=== PATIENT | male | born 1935 | race Caucasian/White ===

== ENCOUNTER → 2017-04-13 | Outpatient (CLI) | payer MEDICARE ==
[2017-04-13 08:34] LABS: Blood Urea Nitrogen 22 mg/dL (9-20); Non-African American GFR(MDRD) >60 (>60 ml/min/1.73 sqM)
--- NOTE | 2017-04-13 10:36 | CT ---
EXAMINATION TYPE: CT chest w con DATE OF EXAM: 04/13/2017 COMPARISON: 04/11/2016. HISTORY: Lung nodule follow up R 91.1, I 71.2. CT DLP: 686 mGycm Automated exposure control for dose reduction was used. CONTRAST: CT scan of the chest is performed with IV Contrast, patient injected with 100 mL of Omnipaque 300. FINDINGS: There is no pleural or pericardial effusion. There is an unchanged 5 mm nodule along the major fissur e on the right. There is an opacity at the left lung base which is felt to be due to atelectasis. The re are no findings to suggest a pneumonia. The central airways are patent. 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 Calcifications are noted surrounding the aor tic valve. There are a few coronary arterial calcifications also noted. There is a 9 mm precarinal ly mph node. There is a small amount fluid noted in the superior pericardial recess. The liver is diffusely hypodense which is felt to be due to hepatic steatosis. Multiple gallstones ar e noted within the gallbladder. The remainder of the upper abdomen is unremarkable as visualized. Mild degenerative changes are noted in the thoracic spine. IMPRESSION: 1. No significant change in appearance of the lungs. A nodule along the major fissure on the right is stable. No nodules are identified. 2. Suspected hepatic steatosis. Correlation with liver function tests is recommended. 3. Other findings are unchanged.
== END | disposition home or self-care (01) ==
LOC: RADCTMAIN 08:02
PROVIDERS: ATTEND Internal Medicine
DX: R91.1 Solitary pulmonary nodule (principal); I71.2 Thoracic aortic aneurysm, without rupture
CPT/HCPCS: 82565; 84520; 71260; 36415; Q9967

== ENCOUNTER 2018-03-02 15:49 | Inpatient (IN) | payer MEDICARE ==
--- NOTE | 2018-03-02 16:22 | ED ---
GI Bleed HPI - General Chief complaint: GI Bleed Stated complaint: rectal bleed Time Seen by Provider: 03/02/18 15:57 Source: patient Mode of arrival: ambulatory Limitations: no limitations - History of Present Illness Initial comments: This patient is an 82-year-old man who presents to be evaluated for rectal bleeding. Patient states that the symptoms started 2-3 hours ago. Patient states he went to have a bowel movement and there was some dark blood passed with the stool. He states that about an hour later he had the urge to have another bowel movement and passed mostly some dark blood. The patient denies any associated abdominal or chest pain. He is not having any perianal pain. Patient denies any symptoms associated with anemia, including no chest pain, dyspnea, diaphoresis, lightheadedness, palpitations or syncope. No orthostatic symptoms. MD complaint: gross hematochezia Onset/Timin -: hour(s) Radiation: none Quality: painless Consistency: constant Improves with: none Worsens with: none Context: blood thinners Associated Symptoms: denies other symptoms Treatments Prior to Arrival: none - Related Data Home Medications Medication Instructions Recorded Confirmed Losartan [Cozaar] 50 mg PO DAILY 06/18/16 03/02/18 Ibuprofen [Motrin Ib] 200 mg PO HS 03/02/18 03/02/18 Magnesium(Unknown) 1 tab PO DAILY 03/02/18 03/02/18 Metoprolol Tartrate [Lopressor] 25 mg PO DAILY 03/02/18 03/02/18 Warfarin Sodium [Coumadin] 3 mg PO RODRIGUEZ 03/02/18 03/02/18 Warfarin Sodium [Coumadin] 6 mg PO SUMOTUWETHFRSA 03/02/18 03/02/18 Allergies Allergy/AdvReac Type Severity Reaction Status Date / Time No Known Allergies Allergy Verified 03/02/18 17:14 Review of Systems ROS Statement: Those systems with pertinent positive or pertinent negative responses have been documented in the HPI. ROS Other: All systems not noted in ROS Statement are negative. Constitutional: Denies: fever, chills Respiratory: Denies: cough, dyspnea Cardiovascular: Denies: chest pain, palpitations, orthopnea, syncope Gastrointestinal: Reports: hematochezia. Denies: abdominal pain, nausea, vomiting, diarrhea, hematemesis, melena Genitourinary: Denies: dysuria, hematuria Musculoskeletal: Denies: back pain Skin: Denies: rash Neurological: Denies: headache, weakness, numbness Past Medical History Past Medical History: Atrial Fibrillation, Hyperlipidemia, Hypertension History of Any Multi-Drug Resistant Organisms: None Reported Past Surgical History: Back Surgery Past Anesthesia/Blood Transfusion Reactions: No Reported Reaction Past Psychological History: No Psychological Hx Reported Smoking Status: Never smoker Past Alcohol Use History: Occasional Past Drug Use History: None Reported General Exam Limitations: no limitations General appearance: alert, in no apparent distress Eye exam: Present: normal appearance. Absent: scleral icterus, conjunctival injection ENT exam: Present: normal oropharynx Respiratory exam: Present: normal lung sounds bilaterally. Absent: respiratory distress, wheezes, rales, rhonchi, stridor Cardiovascular Exam: Present: normal rhythm, bradycardia (Rate approximately 52 at my exam), normal heart sounds. Absent: systolic murmur, diastolic murmur, rubs, gallop GI/Abdominal exam: Present: soft, normal bowel sounds. Absent: distended, tenderness, guarding, rebound, rigid, organomegaly, mass, pulsatile mass, hernia Extremities exam: Present: normal inspection, normal capillary refill. Absent: pedal edema, calf tenderness Back exam: Present: normal inspection. Absent: CVA tenderness (R), CVA tenderness (L) Neurological exam: Present: alert Skin exam: Present: warm, dry, intact, normal color. Absent: rash Course Vital Signs 03/02/18 03/02/18 03/02/18 15:52 16:57 17:50 Temperature 96.9 F L Pulse Rate 55 L 48 L 50 L Respiratory 18 18 18 Rate Blood Pressure 182/86 114/82 139/86 O2 Sat by Pulse 95 99 Oximetry Medical Decision Making - Lab Data Result diagrams: 03/02/18 16:12 03/02/18 16:12 Lab Results 03/02/18 03/02/18 03/02/18 Range/Units 16:12 16:12 16:12 WBC 4.8 (3.8-10.6) k/uL RBC 4.81 (4.30-5.90) m/uL Hgb 14.4 (13.0-17.5) gm/dL Hct 42.9 (39.0-53.0) % MCV 89.1 (80.0-100.0) fL MCH 30.0 (25.0-35.0) pg MCHC 33.6 (31.0-37.0) g/dL RDW 13.1 (11.5-15.5) % Plt Count 249 (150-450) k/uL Neutrophils % 58 % Lymphocytes % 26 % Monocytes % 7 % Eosinophils % 6 % Basophils % 1 % Neutrophils # 2.7 (1.3-7.7) k/uL Lymphocytes # 1.2 (1.0-4.8) k/uL Monocytes # 0.3 (0-1.0) k/uL Eosinophils # 0.3 (0-0.7) k/uL Basophils # 0.0 (0-0.2) k/uL PT (9.0-12.0) sec INR (<1.2) APTT (22.0-30.0) sec Sodium 141 (137-145) mmol/L Potassium 4.0 (3.5-5.1) mmol/L Chloride 107 (98-107) mmol/L Carbon Dioxide 20 L (22-30) mmol/L Anion Gap 14 mmol/L BUN 21 H (9-20) mg/dL Creatinine 0.88 (0.66-1.25) mg/dL Est GFR (CKD-EPI)AfAm >90 (>60 ml/min/1.73 sqM) Est GFR (CKD-EPI)NonAf 79 (>60 ml/min/1.73 sqM) Glucose 94 (74-99) mg/dL Plasma Lactic Acid Cassius (0.7-2.0) mmol/L Calcium 9.5 (8.4-10.2) mg/dL Total Bilirubin 0.4 (0.2-1.3) mg/dL AST 27 (17-59) U/L ALT 36 (21-72) U/L Alkaline Phosphatase 71 (38-126) U/L Total Creatine Kinase 362 H (55-170) U/L CK-MB (CK-2) 6.9 H* (0.0-2.4) ng/mL CK-MB (CK-2) Rel Index 1.9 Troponin I <0.012 (0.000-0.034) ng/mL Total Protein 6.3 (6.3-8.2) g/dL Albumin 4.2 (3.5-5.0) g/dL Blood Type Blood Type Recheck Antibody Screen Spec Expiration Date 03/02/18 03/02/18 03/02/18 Range/Units 16:12 16:12 16:12 WBC (3.8-10.6) k/uL RBC (4.30-5.90) m/uL Hgb (13.0-17.5) gm/dL Hct (39.0-53.0) % MCV (80.0-100.0) fL MCH (25.0-35.0) pg MCHC (31.0-37.0) g/dL RDW (11.5-15.5) % Plt Count (150-450) k/uL Neutrophils % % Lymphocytes % % Monocytes % % Eosinophils % % Basophils % % Neutrophils # (1.3-7.7) k/uL Lymphocytes # (1.0-4.8) k/uL Monocytes # (0-1.0) k/uL Eosinophils # (0-0.7) k/uL Basophils # (0-0.2) k/uL PT 28.4 H (9.0-12.0) sec INR 3.2 H (<1.2) APTT 38.5 H (22.0-30.0) sec Sodium (137-145) mmol/L Potassium (3.5-5.1) mmol/L Chloride (98-107) mmol/L Carbon Dioxide (22-30) mmol/L Anion Gap mmol/L BUN (9-20) mg/dL Creatinine (0.66-1.25) mg/dL Est GFR (CKD-EPI)AfAm (>60 ml/min/1.73 sqM) Est GFR (CKD-EPI)NonAf (>60 ml/min/1.73 sqM) Glucose (74-99) mg/dL Plasma Lactic Acid Cassius 1.1 (0.7-2.0) mmol/L Calcium (8.4-10.2) mg/dL Total Bilirubin (0.2-1.3) mg/dL AST (17-59) U/L ALT (21-72) U/L Alkaline Phosphatase (38-126) U/L Total Creatine Kinase (55-170) U/L CK-MB (CK-2) (0.0-2.4) ng/mL CK-MB (CK-2) Rel Index Troponin I (0.000-0.034) ng/mL Total Protein (6.3-8.2) g/dL Albumin (3.5-5.0) g/dL Blood Type O Positive Blood Type Recheck No Antibody Screen NEGATIVE Spec Expiration Date 03/05/2018 - 2311 Disposition Clinical Impression: Lower gastrointestinal hemorrhage Disposition: ADMITTED IP TO THIS [facility] Condition: Good Is patient prescribed a controlled substance at d/c from ED?: No Referrals: Carlin Scott MD [Primary Care Provider] - 1-2 days
[2018-03-02 16:32] LABS: Basophils % (A) 1 %; Eosinophils # (A) 0.3 k/uL (0-0.7); Eosinophils % (A) 6 %; HCT 42.9 % (39.0-53.0); HGB 14.4 gm/dL (13.0-17.5); Lymphocytes # (A) 1.2 k/uL (1.0-4.8); Lymphocytes % (A) 26 %; MCHC 33.6 g/dL (31.0-37.0); MCV 89.1 fL (80.0-100.0); Mean Platelet Volume 6.8; Monocytes # (A) 0.3 k/uL (0-1.0); Monocytes % (A) 7 %; Neutrophils # (A) 2.7 k/uL (1.3-7.7); Neutrophils % (A) 58 %; Platelet Count 249 k/uL (150-450); RBC 4.81 m/uL (4.30-5.90); RDW 13.1 % (11.5-15.5); WBC 4.8 k/uL (3.8-10.6)
[2018-03-02 16:42] LABS: ALT 36 U/L (21-72); AST 27 U/L (17-59); Albumin 4.2 g/dL (3.5-5.0); Alkaline Phosphatase 71 U/L (38-126); Anion Gap 14 mmol/L; Blood Urea Nitrogen 21 mg/dL (9-20); Calcium 9.5 mg/dL (8.4-10.2); Carbon Dioxide 20 mmol/L (22-30); Chloride 107 mmol/L (98-107); Glucose 94 mg/dL (74-99); INR 3.2 (<1.2); Partial Thromboplastin Time 38.5 sec (22.0-30.0); Prothrombin Time 28.4 sec (9.0-12.0); Sodium 141 mmol/L (137-145); Total Bilirubin 0.4 mg/dL (0.2-1.3); Total Protein 6.3 g/dL (6.3-8.2)
[2018-03-02 16:59] LABS: Creatine Kinase 362 U/L (55-170)
[2018-03-02 17:12] LABS: Troponin I <0.012 ng/mL (0.000-0.034)
[2018-03-02 17:14] LABS: Creatine Kinase MB 6.9 ng/mL (0.0-2.4)
[2018-03-02] MEDS ORDERED: NALOXONE 0.4 MG/ML 1 ML VIAL IV PRN (18:08)
[2018-03-02] MEDS ORDERED: ONDANSETRON 4 MG/2 ML VIAL IVP PRN (18:08)
[2018-03-02] MEDS ORDERED: PHYTONADIONE ORAL 5 MG/5 ML ORAL.SYRG PO STA (18:14)
[2018-03-02] MEDS ORDERED: PANTOPRAZOLE 40 MG/10 ML VIAL IVP STA (18:15)
[2018-03-02] MEDS: SODIUM CHLORIDE 0.9% 1,000 ML IV SCH (18:34)
[2018-03-02 20:31] LABS: HCT 38.1 % (39.0-53.0); HGB 12.9 gm/dL (13.0-17.5); MCH 30.4 pg (25.0-35.0); MCHC 33.7 g/dL (31.0-37.0); MCV 90.1 fL (80.0-100.0); Mean Platelet Volume 6.8; Platelet Count 261 k/uL (150-450); RBC 4.23 m/uL (4.30-5.90); RDW 13.1 % (11.5-15.5); WBC 6.5 k/uL (3.8-10.6)
[2018-03-02 20:47] LABS: Glucose,Whole Blood 112 mg/dL (75-99)
--- NOTE | 2018-03-02 22:52 | HP ---
HISTORY AND PHYSICAL DATE OF ADMISSION: 03/02/2018. HISTORY OF PRESENT ILLNESS: This is a 82-year-old white male who was brought to the emergency room with rectal bleeding and he is being admitted by me for Dr. Scott as I am covering Dr. Scott this weekend. The patient started having rectal bleeding about 2-3 hours prior to coming to the ER. He had 2 or 3 bowel movements which was watery and dark red stool and the patient denied any abdominal pain, nausea, or vomiting and no systemic symptoms. He also has had no chest pain or shortness of breath. In the ER, his CBC showed a WBC count of 4.8, hemoglobin 14.4, platelet count 249,000. Sodium 141, potassium 4.0, and BUN 21, creatinine 0.88. His cardiac enzymes are within normal limits. His protime and INR was prolonged and it was the protime was 28.4, an INR of 3.2. The patient is known to have paroxysmal atrial fibrillation and he has been on Coumadin. The patient was admitted to the hospital for further evaluation and treatment. PAST MEDICAL HISTORY: Reveals that the patient is known to have hypertensive cardiovascular disease, paroxysmal atrial fibrillation. CURRENT MEDICATIONS: Include Cozaar 50 mg p.o. daily, Motrin 200 mg daily q.h.s. and Coumadin 3 mg on Sundays and 6 mg the rest of the days. He has had no major operations. FAMILY HISTORY: Noncontributory. REVIEW OF SYSTEMS: Patient denies any headache. Appetite has been good. Bowels have been regular until the present complaints started. He has no chest pain. He has no shortness of breath. He has no nausea, vomiting, and he has no polyuria or dysuria. He has no neurological symptoms. PHYSICAL EXAMINATION: Reveals a 82-year-old white male, well nourished and well developed. He is in no acute distress. He is alert and oriented. There is no jaundice. There is no generalized lymphadenopathy. No petechia or bruises. Temperature 96.9, pulse 58 per minute, regular, and blood pressure 139/86, pulse ox 99%. NECK: Supple. There is no jugular venous distention. There is no goiter and no carotid bruit. Heart is in sinus rhythm. LUNGS: Clear to auscultation and percussion. ABDOMEN: Soft and nontender. There is no mass palpable. Examination of the lower extremities reveal no pitting edema. Neurologic examination does not reveal localizing signs. IMPRESSION: 1. Gastrointestinal bleeding, acute. 2. Hypertensive cardiovascular disease. 3. History of paroxysmal atrial fibrillation. 4. Prolonged PT and INR due to Coumadin therapy. PLAN: Patient will be admitted to the hospital. Heart will be monitored with telemetry. We will also monitor his hemoglobin and hematocrit. Will get Gastroenterology consultation. Dr. Winlsow has already been consulted. Prognosis is guarded. The diagnosis, prognosis and therapeutic plans were discussed in detail with the patient and also with his . MMODL / IJN: [id number] /
[2018-03-03 00:15] LABS: Basophils % (A) 0 %; Eosinophils # (A) 0.2 k/uL (0-0.7); Eosinophils % (A) 2 %; HCT 39.4 % (39.0-53.0); HGB 12.7 gm/dL (13.0-17.5); Lymphocytes # (A) 1.2 k/uL (1.0-4.8); Lymphocytes % (A) 16 %; MCH 29.2 pg (25.0-35.0); MCHC 32.2 g/dL (31.0-37.0); MCV 90.8 fL (80.0-100.0); Monocytes # (A) 0.3 k/uL (0-1.0); Monocytes % (A) 5 %; Neutrophils # (A) 5.4 k/uL (1.3-7.7); Neutrophils % (A) 75 %; Platelet Count 254 k/uL (150-450); RBC 4.34 m/uL (4.30-5.90); RDW 13.4 % (11.5-15.5); WBC 7.2 k/uL (3.8-10.6)
[2018-03-03 04:49] LABS: Basophils % (A) 0 %; Eosinophils # (A) 0.1 k/uL (0-0.7); Eosinophils % (A) 3 %; HCT 34.9 % (39.0-53.0); HGB 11.4 gm/dL (13.0-17.5); Lymphocytes # (A) 0.9 k/uL (1.0-4.8); Lymphocytes % (A) 19 %; MCH 29.5 pg (25.0-35.0); MCHC 32.7 g/dL (31.0-37.0); MCV 90.1 fL (80.0-100.0); Mean Platelet Volume 6.6; Monocytes # (A) 0.3 k/uL (0-1.0); Monocytes % (A) 6 %; Neutrophils # (A) 3.3 k/uL (1.3-7.7); Neutrophils % (A) 71 %; Platelet Count 205 k/uL (150-450); RBC 3.87 m/uL (4.30-5.90); RDW 13.2 % (11.5-15.5); WBC 4.7 k/uL (3.8-10.6)
[2018-03-03 05:01] LABS: Calcium 8.8 mg/dL (8.4-10.2); Phosphorus 3.4 mg/dL (2.5-4.5); Potassium 4.1 mmol/L (3.5-5.1)
[2018-03-03 05:03] LABS: INR 2.7 (<1.2); Prothrombin Time 24.3 sec (9.0-12.0)
[2018-03-03] MEDS: SODIUM CHLORIDE 0.9% 1,000 ML IV SCH ×3 (08:19→18:58)
[2018-03-03] MEDS: LOSARTAN 50 MG TAB PO SCH (08:19)
[2018-03-03] MEDS: METOPROLOL TARTRATE 25 MG TAB PO SCH (08:19)
[2018-03-03] MEDS: PANTOPRAZOLE 40 MG/10 ML VIAL IV SCH (08:20)
[2018-03-03 12:26] LABS: HGB 10.9 gm/dL (13.0-17.5); MCH 29.2 pg (25.0-35.0); MCV 91.2 fL (80.0-100.0); Platelet Count 202 k/uL (150-450); RBC 3.73 m/uL (4.30-5.90); RDW 13.3 % (11.5-15.5); WBC 4.5 k/uL (3.8-10.6)
[2018-03-03 12:35] LABS: INR 2.3 (<1.2); Partial Thromboplastin Time 32.9 sec (22.0-30.0); Prothrombin Time 20.7 sec (9.0-12.0)
--- NOTE | 2018-03-03 12:45 | P.CNPUL ---
History of Present Illness Consult date: 03/03/18 Chief complaint: GI bleeding History of present illness: A pleasant 82-year-old male patient who takes anticoagulation with warfarin regarding chronic paroxysmal atrial fibrillation, coming to the hospital because of painless bright red blood per rectum. The patient had 2 episodes at home and 2 smaller episodes here in the hospital. No chest pain. No episodes of hematemesis or coffee-ground emesis. No melanotic stools. The stool was maroon colored. Occasional clots were seen. The patient had some difficulties in controlling the INR on outpatient basis and adjust was were being made and he was given a lower dose of Coumadin and on admission his INR was down to 3.2. He was given 5 mg of vitamin K and subsequent INR today is at 2.7. He has not bled in the intensive care unit. No nausea. No vomiting. No altered mentation. No chest pain. He has a normal sinus rhythm for now with a first- degree AV block. He has been taking nonsteroidal anti-inflammatory medications for arthritic pain and he was taken quite a bit of Motrin. No liver disease cannot alcoholism. No peptic ulcer disease. No other complaints otherwise. His last colonoscopy was done more than 8 years ago. Review of Systems Constitutional: Denies chills, Denies fever Eyes: denies blurred vision, denies bulging eye, denies decreased vision Ears: deny: decreased hearing, ear discharge, earache, tinnitus Ears, nose, mouth and throat: Denies headache, Denies sore throat Cardiovascular: Denies chest pain, Denies shortness of breath Respiratory: Reports as per HPI Gastrointestinal: Reports BRBPR Genitourinary: Reports as per HPI Musculoskeletal: Denies myalgias Musculoskeletal: absent: ankle pain, ankle stiffness, ankle swelling Integumentary: Denies pruritus, Denies rash Neurological: Reports as per HPI Psychiatric: Reports as per HPI Endocrine: Reports as per HPI Hematologic/Lymphatic: Reports as per HPI Allergic/Immunologic: Reports as per HPI Past Medical History Past Medical History: Atrial Fibrillation, Hyperlipidemia, Hypertension, Osteoarthritis (OA) History of Any Multi-Drug Resistant Organisms: None Reported Past Surgical History: Back Surgery, Tonsillectomy Past Anesthesia/Blood Transfusion Reactions: No Reported Reaction Past Psychological History: No Psychological Hx Reported Smoking Status: Never smoker Past Alcohol Use History: Occasional Past Drug Use History: None Reported - Past Family History Father Family Medical History: Cancer Additional Family Medical History / Comment(s): Pancreatic CA Medications and Allergies Home Medications Medication Instructions Recorded Confirmed Type Losartan [Cozaar] 50 mg PO DAILY 06/18/16 03/02/18 History Ibuprofen [Motrin Ib] 200 mg PO HS 03/02/18 03/02/18 History Magnesium(Unknown) 1 tab PO DAILY 03/02/18 03/02/18 History Metoprolol Tartrate [Lopressor] 25 mg PO DAILY 03/02/18 03/02/18 History Warfarin Sodium [Coumadin] 3 mg PO RODRIGUEZ 03/02/18 03/02/18 History Warfarin Sodium [Coumadin] 6 mg PO SUMOTUWETHFRSA 03/02/18 03/02/18 History Allergies Allergy/AdvReac Type Severity Reaction Status Date / Time No Known Allergies Allergy Verified 03/02/18 17:14 Physical Exam Vitals: Vital Signs Temp Pulse Pulse Resp BP BP BP 03/03/18 12:00 98.3 F 49 L 15 117/68 03/03/18 11:00 47 L 15 137/80 03/03/18 10:00 43 L 18 129/76 03/03/18 09:00 68 18 144/82 03/03/18 08:30 63 18 141/85 03/03/18 08:00 98.1 F 82 16 141/73 03/03/18 07:00 52 L 20 163/79 03/03/18 06:30 54 L 33 H 145/76 03/03/18 06:00 60 19 140/71 03/03/18 05:30 56 L 21 136/88 03/03/18 05:00 55 L 26 H 151/65 03/03/18 04:30 53 L 16 141/72 03/03/18 04:00 98.2 F 53 L 15 136/76 03/03/18 03:30 56 L 20 108/56 03/03/18 03:00 55 L 12 129/55 03/03/18 02:30 52 L 16 112/69 03/03/18 02:00 56 L 48 H 93/48 03/03/18 01:30 55 L 21 106/69 03/03/18 01:00 58 L 21 127/80 03/03/18 00:30 57 L 30 H 135/75 03/03/18 00:06 65 20 158/79 03/03/18 00:00 97.9 F 75 20 158/79 03/02/18 23:30 54 L 15 158/79 03/02/18 23:00 64 23 110/60 03/02/18 22:30 52 L 16 172/68 03/02/18 22:00 60 11 L 137/82 03/02/18 21:30 65 20 112/69 03/02/18 21:00 72 17 112/69 03/02/18 19:45 98.1 F 79 18 107/68 03/02/18 19:06 59 L 145/87 03/02/18 18:51 96 F L 18 03/02/18 18:35 97.8 F 12 112/69 03/02/18 17:50 50 L 18 139/86 03/02/18 16:57 48 L 18 114/82 03/02/18 15:52 96.9 F L 55 L 18 182/86 Pulse Ox 03/03/18 12:00 95 03/03/18 11:00 97 03/03/18 10:00 96 03/03/18 09:00 96 03/03/18 08:30 95 03/03/18 08:00 95 03/03/18 07:00 03/03/18 06:30 03/03/18 06:00 91 L 03/03/18 05:30 92 L 03/03/18 05:00 95 03/03/18 04:30 93 L 03/03/18 04:00 93 L 03/03/18 03:30 93 L 03/03/18 03:00 93 L 03/03/18 02:30 94 L 03/03/18 02:00 94 L 03/03/18 01:30 97 03/03/18 01:00 97 03/03/18 00:30 93 L 03/03/18 00:06 97 03/03/18 00:00 94 L 03/02/18 23:30 93 L 03/02/18 23:00 96 03/02/18 22:30 95 03/02/18 22:00 92 L 03/02/18 21:30 93 L 03/02/18 21:00 96 03/02/18 19:45 96 03/02/18 19:06 05/12/18 18:51 97 03/02/18 18:35 93 L 03/02/18 17:50 99 03/02/18 16:57 03/02/18 15:52 95 Intake and Output 03/02/18 03/03/18 03/03/18 22:59 06:59 14:59 Intake Total 125 1000 950 Output Total 275 Balance 125 725 950 Intake: IV 125 1000 750 Sodium Chloride 0.9% 1, 125 1000 750 000 ml @ 125 mls/hr IV . Q8H [facility] Rx#:[id number] Oral 200 Output: Urine 275 Other: Voiding Method Urinal Urinal Toilet Urinal # Voids 0 0 1 # Bowel Movements 5 1 Weight 93.5 kg 93.5 kg Head exam was generally normal. There was no scleral icterus or corneal arcus. Mucous membranes were moist. Neck was supple and without jugular venous distension, thyromegaly, or carotid bruits. Carotids were easily palpable bilaterally. There was no adenopathy. Lungs were clear to auscultation and percussion, and with normal diaphragmatic excursion. No wheezes or rales were noted. Cardiac exam revealed the PMI to be normally situated and sized. The rhythm was regular and no extrasystoles were noted during several minutes of auscultation. The first and second heart sounds were normal and physiologic splitting of the second heart sound was noted. There were no murmurs, rubs, clicks, or gallops. Abdominal exam revealed normal bowel sounds. The abdomen was soft, non-tender, and without masses, organomegaly, or appreciable enlargement of the abdominal aorta. Examination of the extremities revealed easily palpable radial, femoral and pedal pulses. There was no cyanosis, clubbing or edema. Examination of the skin revealed no evidence of significant rashes, suspicious appearing nevi or other concerning lesions. Neurologically the patient is awake and alert and there is no focal neurological deficit Results - Laboratory Findings CBC and BMP: 03/03/18 04:18 03/03/18 04:18 PT/INR, D-dimer PT 20.7 sec (9.0-12.0) H 03/03/18 11:57 INR 2.3 (<1.2) H 03/03/18 11:57 Abnormal lab findings: Abnormal Labs 03/02/18 03/02/18 03/02/18 16:12 16:12 16:12 RBC Hgb Hct Lymphocytes # PT 28.4 H INR 3.2 H APTT 38.5 H Chloride Carbon Dioxide 20 L BUN 21 H POC Glucose (mg/dL) Total Creatine Kinase 362 H CK-MB (CK-2) 6.9 H* 03/02/18 03/02/18 03/03/18 20:02 20:45 00:01 RBC 4.23 L Hgb 12.9 L 12.7 L Hct 38.1 L Lymphocytes # PT INR APTT Chloride Carbon Dioxide BUN POC Glucose (mg/dL) 112 H Total Creatine Kinase CK-MB (CK-2) 03/03/18 03/03/18 03/03/18 04:18 04:18 04:18 RBC 3.87 L Hgb 11.4 L Hct 34.9 L Lymphocytes # 0.9 L PT 24.3 H INR 2.7 H APTT 35.0 H Chloride 108 H Carbon Dioxide BUN POC Glucose (mg/dL) Total Creatine Kinase CK-MB (CK-2) 03/03/18 11:57 RBC Hgb Hct Lymphocytes # PT 20.7 H INR 2.3 H APTT 32.9 H Chloride Carbon Dioxide BUN POC Glucose (mg/dL) Total Creatine Kinase CK-MB (CK-2) Assessment and Plan Plan: Assessment 1 acute GI bleeding, likely of a lower GI source/diverticular bleed exacerbated by anticoagulation and use of nonsteroidal anti-inflammatory medication. The patient was taken off the warfarin currently his INR is down to 2.3 after being given 5 mg of vitamin K. No further episodes of bleeding. GI is on the case. Hemodynamically stable. Hemoglobin is up from a baseline of 12.9 down to 11.4. 2 paroxysmal atrial fibrillation 3 hypertension 4 hyperlipidemia 5 osteoarthritis and the patient has been taken Motrin on outpatient basis Plan Allow clear liquids. Monitor hemoglobin. Monitor coagulation profile. No need for transfusion at this point in time. Consult GI for possible colonoscopy at a later stage. Continue moved out of the intensive care unit once seen by gastroenterology.
[2018-03-03 19:34] LABS: HCT 34.8 % (39.0-53.0); HGB 11.2 gm/dL (13.0-17.5); MCH 29.7 pg (25.0-35.0); MCHC 32.2 g/dL (31.0-37.0); Mean Platelet Volume 7.2; Platelet Count 223 k/uL (150-450); RBC 3.78 m/uL (4.30-5.90); RDW 13.3 % (11.5-15.5); WBC 3.9 k/uL (3.8-10.6)
--- NOTE | 2018-03-03 22:44 | PN ---
PROGRESS NOTE DATE OF SERVICE: 03/03/2018 This is an 82-year-old white male was brought to the emergency room with 3 episodes of rectal bleeding and a history he had profuse bleeding and 2-3 bloody stools before coming to the ER. In the ER, his CBC showed a hemoglobin 14.4 at the time of arrival and then it came down to 12.9. The patient also is known to have paroxysmal atrial fibrillation and has been on Coumadin. His INR and pro time was slightly prolonged. The patient was admitted to the hospital for further evaluation and treatment. Initially, patient was admitted to telemetry and gastroenterology consultation was requested and Dr. Winslow was consulted. While in the hospital, the patient still continued to have 2 or 3 bloody stools and because of continuous bleeding, the patient was transferred to ICU. Dr. Ruiz was consulted for ICU management. His hemoglobin today is 11.4, which is much lower than yesterday. Dr. Winslow saw the patient in consultation and he is also following the patient. The patient denies any abdominal pain. He has no chest pain or shortness of breath. His vital signs are stable. Heart is in sinus rhythm. Lungs are clear. There is no acute cardio or respiratory problems. Prognosis is guarded. We will continue to monitor his hemoglobin and hematocrit and Dr. Ruiz is following the patient for ICU management. Dr. Winslow also is following the patient for further evaluation. Prognosis is guarded. His primary care physician, Dr. Scott, will assume care of the patient starting tomorrow. MMANALIAL / SONAMN: [id number] /
[2018-03-03 23:47] LABS: HCT 30.9 % (39.0-53.0); HGB 10.1 gm/dL (13.0-17.5); MCH 29.7 pg (25.0-35.0); MCHC 32.5 g/dL (31.0-37.0); MCV 91.3 fL (80.0-100.0); Mean Platelet Volume 7.1; Platelet Count 196 k/uL (150-450); RBC 3.39 m/uL (4.30-5.90); RDW 13.3 % (11.5-15.5); WBC 3.5 k/uL (3.8-10.6)
[2018-03-04] MEDS: SODIUM CHLORIDE 0.9% 1,000 ML IV SCH ×3 (03:45→12:38)
[2018-03-04 06:06] LABS: Basophils % (A) 0 %; Eosinophils # (A) 0.2 k/uL (0-0.7); Eosinophils % (A) 5 %; HCT 32.8 % (39.0-53.0); HGB 10.9 gm/dL (13.0-17.5); Lymphocytes # (A) 1.2 k/uL (1.0-4.8); Lymphocytes % (A) 32 %; MCH 29.6 pg (25.0-35.0); MCHC 33.1 g/dL (31.0-37.0); MCV 89.5 fL (80.0-100.0); Mean Platelet Volume 7.1; Monocytes # (A) 0.3 k/uL (0-1.0); Monocytes % (A) 8 %; Neutrophils # (A) 1.9 k/uL (1.3-7.7); Neutrophils % (A) 51 %; Platelet Count 223 k/uL (150-450); RBC 3.67 m/uL (4.30-5.90); RDW 13.1 % (11.5-15.5); WBC 3.7 k/uL (3.8-10.6)
[2018-03-04 06:36] LABS: Calcium 8.8 mg/dL (8.4-10.2); Magnesium 2.1 mg/dL (1.6-2.3); Phosphorus 3.4 mg/dL (2.5-4.5); Potassium 4.3 mmol/L (3.5-5.1)
[2018-03-04] MEDS: LOSARTAN 50 MG TAB PO SCH (08:18)
[2018-03-04] MEDS: PANTOPRAZOLE 40 MG/10 ML VIAL IV SCH (08:18)
[2018-03-04 08:44] LABS: Prothrombin Time 17.8 sec (9.0-12.0)
--- NOTE | 2018-03-04 10:25 | P.PN ---
Subjective Progress Note Date: 03/04/18 Principal diagnosis: Acute GI bleeding A pleasant 82-year-old male patient who takes anticoagulation with warfarin regarding chronic paroxysmal atrial fibrillation, coming to the hospital because of painless bright red blood per rectum. The patient had 2 episodes at home and 2 smaller episodes here in the hospital. No chest pain. No episodes of hematemesis or coffee-ground emesis. No melanotic stools. The stool was maroon colored. Occasional clots were seen. The patient had some difficulties in controlling the INR on outpatient basis and adjust was were being made and he was given a lower dose of Coumadin and on admission his INR was down to 3.2. He was given 5 mg of vitamin K and subsequent INR today is at 2.7. He has not bled in the intensive care unit. No nausea. No vomiting. No altered mentation. No chest pain. He has a normal sinus rhythm for now with a first- degree AV block. He has been taking nonsteroidal anti-inflammatory medications for arthritic pain and he was taken quite a bit of Motrin. No liver disease cannot alcoholism. No peptic ulcer disease. No other complaints otherwise. His last colonoscopy was done more than 8 years ago. Patient was reevaluated today on 03/04/2018, patient is doing well, Coumadin remains on hold, patient is not experiencing any active GI bleeding. Did not require any blood transfusions since admission, hemoglobin today is 10.9, similar to yesterday 11.2. INR is 2.0, basic metabolic profile is relatively normal renal profile is normal. Patient denies any nausea vomiting melena or hematemesis, denies any shortness of breath, we will likely transfer the patient out of the ICU this morning. Objective - Vital Signs Vital signs: Vital Signs Temp 97.4 F L 03/04/18 08:00 Pulse 54 L 03/04/18 08:00 Resp 15 03/04/18 08:00 BP 154/88 03/04/18 08:00 Pulse Ox 98 03/04/18 08:00 Intake & Output 03/03/18 03/04/18 03/04/18 18:59 06:59 18:59 Intake Total 2545 1475 250 Output Total 900 1500 400 Balance 1645 -25 -150 Weight 92.4 kg Intake: IV 1625 1375 250 Sodium Chloride 0.9% 1, 1625 1375 250 000 ml @ 125 mls/hr IV . Q8H [facility] Rx#:[id number] Oral 920 100 Output: Urine 900 1500 400 Other: Voiding Method Toilet Toilet Toilet Urinal Urinal Urinal # Voids 1 # Bowel Movements 1 1 - Exam Physical Exam: Revealed an 82-year-old white male, pleasant, in no distress. HEENT:[Neck is supple.] [No neck masses.] [No thyromegaly.] [No JVD.] Chest: [Clear throughout, no crackles, no rhonchi, no wheezes.] Cardiac Exam: [Normal S1 and S2, no S3 gallop, no murmur.] Abdomen: [Soft, nontender, no megaly, no rebound, no guarding, normal bowel sounds.] Extremities: [No clubbing, no edema, no cyanosis.] Neurological Exam: [No focal neurologic deficit.] Psychiatric: Normal mood affect and mental status examination. Lymphatics: No lymphadenopathy. Musculoskeletal: Normal range of motion, no deformities. Strength adequate bilaterally. - Labs CBC & Chem 7: 03/04/18 05:54 03/04/18 05:54 Labs: Abnormal Lab Results - Last 24 Hours (Table) 03/03/18 03/03/18 03/03/18 Range/Units 11:57 11:57 18:59 WBC (3.8-10.6) k/uL RBC 3.73 L 3.78 L (4.30-5.90) m/uL Hgb 10.9 L 11.2 L (13.0-17.5) gm/dL Hct 34.0 L 34.8 L (39.0-53.0) % PT 20.7 H (9.0-12.0) sec INR 2.3 H (<1.2) APTT 32.9 H (22.0-30.0) sec Chloride (98-107) mmol/L 03/03/18 03/04/18 03/04/18 Range/Units 23:40 05:54 05:54 WBC 3.5 L 3.7 L (3.8-10.6) k/uL RBC 3.39 L 3.67 L (4.30-5.90) m/uL Hgb 10.1 L 10.9 L (13.0-17.5) gm/dL Hct 30.9 L 32.8 L (39.0-53.0) % PT (9.0-12.0) sec INR (<1.2) APTT (22.0-30.0) sec Chloride 112 H (98-107) mmol/L 03/04/18 Range/Units 08:16 WBC (3.8-10.6) k/uL RBC (4.30-5.90) m/uL Hgb (13.0-17.5) gm/dL Hct (39.0-53.0) % PT 17.8 H (9.0-12.0) sec INR 2.0 H (<1.2) APTT (22.0-30.0) sec Chloride (98-107) mmol/L Assessment and Plan Assessment: 1 acute GI bleeding, likely of a lower GI source/diverticular bleed exacerbated by anticoagulation and use of nonsteroidal anti-inflammatory medication. The patient was taken off the warfarin currently his INR is down to 2.0 after being given 5 mg of vitamin K. No further episodes of bleeding. GI is on the case. Hemodynamically stable. Hemoglobin is up from a baseline of 12.9 down to 10.9. 2 paroxysmal atrial fibrillation, decision regarding Coumadin will be addressed by cardiology. Presently the patient is in sinus rhythm. 3 hypertension 4 hyperlipidemia 5 osteoarthritis and the patient has been taken Motrin on outpatient basis Recommendation: Continue present treatment plan, continue to monitor coagulation profile, patient is yet to be seen by gastroenterology on consultation, will transfer the patient out of the ICU, and will follow. Time with Patient: Less than 30
[2018-03-04 10:57] VITALS: RESP 16
[2018-03-04 13:31] LABS: HCT 31.8 % (39.0-53.0); HGB 10.4 gm/dL (13.0-17.5); MCH 29.9 pg (25.0-35.0); MCHC 32.5 g/dL (31.0-37.0); MCV 91.9 fL (80.0-100.0); Mean Platelet Volume 7.3; Platelet Count 197 k/uL (150-450); RBC 3.46 m/uL (4.30-5.90); RDW 13.4 % (11.5-15.5); WBC 3.7 k/uL (3.8-10.6)
[2018-03-04] MEDS: METOPROLOL TARTRATE 25 MG TAB PO SCH (13:31)
[2018-03-04 18:11] LABS: MCH 29.8 pg (25.0-35.0); MCHC 32.4 g/dL (31.0-37.0); MCV 91.9 fL (80.0-100.0); Platelet Count 220 k/uL (150-450); RBC 3.37 m/uL (4.30-5.90); RDW 13.4 % (11.5-15.5); WBC 4.1 k/uL (3.8-10.6)
--- NOTE | 2018-03-04 23:39 | PN ---
PROGRESS NOTE CHIEF COMPLAINT: Re-evaluation. HISTORY OF PRESENT ILLNESS: Ynxada[age]hucg[age]kn-old gentleman who was admitted to the hospital with GI bleeding. The patient is seen in the ICU. He has had no further bleeding. He is suspected to have a colonic diverticular bleed. The patient was seen by GI in consultation; consult report pending. The patient has been seen by the tire changer aircraft as well. The patient is actually feeling fine. He is denying any symptoms. He has had no bloody bowel movement since yesterday. REVIEW OF SYSTEMS: NEURO: Denies any headaches, dizziness. PSYCH: No anxiety. CARDIAC: No chest pain, angina, palpitation. RESPIRATORY: Denies shortness of breath, cough. GI: No nausea, vomiting, abdominal pain, diarrhea. No bowel movement. : No symptoms of dysuria or hematuria. EXTREMITIES: Denies pain, edema. CONSTITUTIONAL: No fever, chills. PHYSICAL EXAMINATION: Pleasant gentleman in no distress. Vital signs revealed temperature 97.4, pulse 54, respirations 15, blood pressure 154/88. HEENT: Normocephalic. NECK: Supple. No JVD. CHEST: Clear to auscultation. CARDIAC: Normal S1, S2 with no gallops, murmurs. Rhythm is regular. ABDOMEN: Soft. Bowel sounds present. Extremities reveal no edema, no tenderness. Neurologically awake, alert, oriented with well-coordinated movements. LAB ASSESSMENT: CBC which revealed a hemoglobin of 10.9. Patient's INR was 2.0. Patient's electrolytes, BUN and creatinine are normal. ASSESSMENT: 1. Lower gastrointestinal bleeding; suspected diverticular bleed. 2. Anemia secondary to acute blood loss. 3. Paroxysmal atrial fibrillation. 4. Bradycardia. PLAN: The patient can be transferred the ICU and the med/surg floor. He can be started on full liquids. If patient remains stable, the patient will be discharged home tomorrow. The patient's condition was discussed with the patient. I also reviewed with the patient that patient down the road will have a colonic evaluation. The patient does not need to take his Coumadin for the next 2 weeks. Patient's condition discussed with the patient. Prognosis guarded. MMODL / IJN: [id number] /
--- NOTE | 2018-03-05 03:52 | P.CONS ---
History of Present Illness - Reason for Consult Consult date: 03/03/18 GI bleeding - History of Present Illness The patient is an 82-year-old male who was admitted through the emergency room where he presented with acute onset of painless rectal bleeding. The patient had couple episodes of bleeding per rectum a few hours prior to arrival. The patient takes Coumadin for chronic atrial fibrillation. His INR was 3.2 on arrival and his hemoglobin was around 10.9. The patient denied upper GI complaints or any hematemesis or coffee-ground emesis. His last colonoscopy was around 8 years ago. The patient had 2 smaller bloody movements after admission and his hemoglobin remained stable. Review of Systems Constitutional: Denied fever, chills and unintentional weight loss Neurologic: No headaches, double vision or any sensory or motor changes Cardiopulmonary: No chest pains or shortness of breath. Has history of hypertension and hypertensive cardiovascular disease and atrial fibrillation Gastrointestinal: See present illness above Genitourinary: No hematuria, dysuria or frequency Endocrine: No diabetes or thyroid disease Musculoskeletal: History of osteoarthritis Skin: No rashes Hematologic: No anemia or bleeding tendency Psychiatric: No anxiety or depression Past Medical History Past Medical History: Atrial Fibrillation, Hyperlipidemia, Hypertension, Osteoarthritis (OA) History of Any Multi-Drug Resistant Organisms: None Reported Past Surgical History: Back Surgery, Tonsillectomy Past Anesthesia/Blood Transfusion Reactions: No Reported Reaction Past Psychological History: No Psychological Hx Reported Smoking Status: Never smoker Past Alcohol Use History: Occasional Past Drug Use History: None Reported - Past Family History Father Family Medical History: Cancer Additional Family Medical History / Comment(s): Pancreatic CA Medications and Allergies Home Medications Medication Instructions Recorded Confirmed Type Losartan [Cozaar] 50 mg PO DAILY 06/18/16 03/02/18 History Ibuprofen [Motrin Ib] 200 mg PO HS 03/02/18 03/02/18 History Magnesium(Unknown) 1 tab PO DAILY 03/02/18 03/02/18 History Metoprolol Tartrate [Lopressor] 25 mg PO DAILY 03/02/18 03/02/18 History Warfarin Sodium [Coumadin] 3 mg PO RODRIGUEZ 03/02/18 03/02/18 History Warfarin Sodium [Coumadin] 6 mg PO SUMOTUWETHFRSA 03/02/18 03/02/18 History Allergies Allergy/AdvReac Type Severity Reaction Status Date / Time No Known Allergies Allergy Verified 03/02/18 17:14 Physical Exam Vitals: Vital Signs Temp Pulse Pulse Resp BP BP BP 03/03/18 12:00 98.3 F 49 L 15 117/68 03/03/18 11:00 47 L 15 137/80 03/03/18 10:00 43 L 18 129/76 03/03/18 09:00 68 18 144/82 03/03/18 08:30 63 18 141/85 03/03/18 08:00 98.1 F 82 16 141/73 03/03/18 07:00 52 L 20 163/79 03/03/18 06:30 54 L 33 H 145/76 03/03/18 06:00 60 19 140/71 03/03/18 05:30 56 L 21 136/88 03/03/18 05:00 55 L 26 H 151/65 03/03/18 04:30 53 L 16 141/72 03/03/18 04:00 98.2 F 53 L 15 136/76 03/03/18 03:30 56 L 20 108/56 03/03/18 03:00 55 L 12 129/55 03/03/18 02:30 52 L 16 112/69 03/03/18 02:00 56 L 48 H 93/48 03/03/18 01:30 55 L 21 106/69 03/03/18 01:00 58 L 21 127/80 03/03/18 00:30 57 L 30 H 135/75 03/03/18 00:06 65 20 158/79 03/03/18 00:00 97.9 F 75 20 158/79 03/02/18 23:30 54 L 15 158/79 03/02/18 23:00 64 23 110/60 03/02/18 22:30 52 L 16 172/68 03/02/18 22:00 60 11 L 137/82 03/02/18 21:30 65 20 112/69 03/02/18 21:00 72 17 112/69 03/02/18 19:45 98.1 F 79 18 107/68 03/02/18 19:06 59 L 145/87 03/02/18 18:51 96 F L 18 03/02/18 18:35 97.8 F 12 112/69 03/02/18 17:50 50 L 18 139/86 03/02/18 16:57 48 L 18 114/82 03/02/18 15:52 96.9 F L 55 L 18 182/86 Pulse Ox 03/03/18 12:00 95 03/03/18 11:00 97 03/03/18 10:00 96 03/03/18 09:00 96 03/03/18 08:30 95 03/03/18 08:00 95 03/03/18 07:00 03/03/18 06:30 03/03/18 06:00 91 L 03/03/18 05:30 92 L 03/03/18 05:00 95 03/03/18 04:30 93 L 03/03/18 04:00 93 L 03/03/18 03:30 93 L 03/03/18 03:00 93 L 03/03/18 02:30 94 L 03/03/18 02:00 94 L 03/03/18 01:30 97 03/03/18 01:00 97 03/03/18 00:30 93 L 03/03/18 00:06 97 03/03/18 00:00 94 L 03/02/18 23:30 93 L 03/02/18 23:00 96 03/02/18 22:30 95 03/02/18 22:00 92 L 03/02/18 21:30 93 L 03/02/18 21:00 96 03/02/18 19:45 96 03/02/18 19:06 03/02/18 18:51 97 03/02/18 18:35 93 L 03/02/18 17:50 99 03/02/18 16:57 03/02/18 15:52 95 Intake and Output 03/02/18 03/03/18 03/03/18 22:59 06:59 14:59 Intake Total 125 1000 950 Output Total 275 Balance 125 725 950 Intake: IV 125 1000 750 Sodium Chloride 0.9% 1, 125 1000 750 000 ml @ 125 mls/hr IV . Q8H [facility] Rx#:[id number] Oral 200 Output: Urine 275 Other: Voiding Method Urinal Urinal Toilet Urinal # Voids 0 0 1 # Bowel Movements 5 1 Weight 93.5 kg 93.5 kg General: Appears stated age, very pleasant, in no acute distress Head and neck: Normocephalic and atraumatic, conjunctivae pink and sclerae not icteric, mucous membranes moist and pink. No masses in the neck or tracheal shifts Lungs: Clear to auscultation with no dullness to percussion Heart: Irregular, no abnormal sounds, murmurs, gallops or friction rubs abdomen: Soft, no masses or organomegalies. No tenderness. Bowel sounds present Extremities: No clubbing, cyanosis or edema Neurologic: Alert and oriented 3. Cranial nerves grossly intact, no gross sensory or motor abnormalities Results CBC & Chem 7: 03/04/18 17:46 03/04/18 05:54 Labs: Abnormal Lab Results - Last 24 Hours (Table) 03/02/18 03/02/18 03/02/18 Range/Units 16:12 16:12 16:12 RBC (4.30-5.90) m/uL Hgb (13.0-17.5) gm/dL Hct (39.0-53.0) % Lymphocytes # (1.0-4.8) k/uL PT 28.4 H (9.0-12.0) sec INR 3.2 H (<1.2) APTT 38.5 H (22.0-30.0) sec Chloride (98-107) mmol/L Carbon Dioxide 20 L (22-30) mmol/L BUN 21 H (9-20) mg/dL POC Glucose (mg/dL) (75-99) mg/dL Total Creatine Kinase 362 H (55-170) U/L CK-MB (CK-2) 6.9 H* (0.0-2.4) ng/mL 03/02/18 03/02/18 03/03/18 Range/Units 20:02 20:45 00:01 RBC 4.23 L (4.30-5.90) m/uL Hgb 12.9 L 12.7 L (13.0-17.5) gm/dL Hct 38.1 L (39.0-53.0) % Lymphocytes # (1.0-4.8) k/uL PT (9.0-12.0) sec INR (<1.2) APTT (22.0-30.0) sec Chloride (98-107) mmol/L Carbon Dioxide (22-30) mmol/L BUN (9-20) mg/dL POC Glucose (mg/dL) 112 H (75-99) mg/dL Total Creatine Kinase (55-170) U/L CK-MB (CK-2) (0.0-2.4) ng/mL 03/03/18 03/03/18 03/03/18 Range/Units 04:18 04:18 04:18 RBC 3.87 L (4.30-5.90) m/uL Hgb 11.4 L (13.0-17.5) gm/dL Hct 34.9 L (39.0-53.0) % Lymphocytes # 0.9 L (1.0-4.8) k/uL PT 24.3 H (9.0-12.0) sec INR 2.7 H (<1.2) APTT 35.0 H (22.0-30.0) sec Chloride 108 H (98-107) mmol/L Carbon Dioxide (22-30) mmol/L BUN (9-20) mg/dL POC Glucose (mg/dL) (75-99) mg/dL Total Creatine Kinase (55-170) U/L CK-MB (CK-2) (0.0-2.4) ng/mL Assessment and Plan Assessment: Gastrointestinal bleeding appears to be lower in origin most likely secondary to diverticular disease. Last colonoscopy around 8 years ago. Plan: Agree with your current management. The bleeding does not appear to be accelerated at this time. The patient will be observed closely and consideration can be given to prepare him for colonoscopy once the bleeding subsides. This can be accomplished as inpatient or as outpatient after discharge depending on the patient's preference and his overall course. I will discuss with you and follow with you with interest.
[2018-03-05 07:46] VITALS: BP 145/84; TEMP 97
[2018-03-05 07:55] LABS: HCT 34.1 % (39.0-53.0); HGB 10.9 gm/dL (13.0-17.5); MCH 29.3 pg (25.0-35.0); MCHC 31.9 g/dL (31.0-37.0); MCV 91.9 fL (80.0-100.0); Mean Platelet Volume 6.7; Platelet Count 233 k/uL (150-450); RBC 3.71 m/uL (4.30-5.90); RDW 13.5 % (11.5-15.5); WBC 4.5 k/uL (3.8-10.6)
[2018-03-05] MEDS: SODIUM CHLORIDE 0.9% 1,000 ML IV SCH (08:52)
[2018-03-05 08:55] VITALS: PULSE 58
[2018-03-05] MEDS: METOPROLOL TARTRATE 25 MG TAB PO SCH (08:56)
[2018-03-05] MEDS: LOSARTAN 50 MG TAB PO SCH (08:56)
[2018-03-05] MEDS: PANTOPRAZOLE 40 MG/10 ML VIAL IV SCH (08:56)
[2018-03-05 09:46] VITALS: BMI 27.6
== END 2018-03-05 10:35 | disposition home or self-care (01) | DRG 378 ==
LOC: EC 15:49 → 6SEL 18:14 → 6ICU 20:17 → 5MS5E 03-04 09:52
PROVIDERS: ADMIT Internal Medicine; ATTEND Internal Medicine
DX: K57.31 Diverticulosis of large intestine without perforation or abscess with bleeding (principal); D62 Acute posthemorrhagic anemia; I48.2 Chronic atrial fibrillation; I11.9 Hypertensive heart disease without heart failure; T39.315A Adverse effect of propionic acid derivatives, initial encounter; I44.0 Atrioventricular block, first degree; M19.91 Primary osteoarthritis, unspecified site; R79.1 Abnormal coagulation profile; T45.515A Adverse effect of anticoagulants, initial encounter; E78.5 Hyperlipidemia, unspecified; Z79.01 Long term (current) use of anticoagulants; Z79.1 Long term (current) use of non-steroidal anti-inflammatories (NSAID); Z79.899 Other long term (current) drug therapy; Z80.0 Family history of malignant neoplasm of digestive organs
CPT/HCPCS: 36415; 80048; 80053; 82550; 82553; 83605; 83735; 84100; 84484; 85025; 85027; 85610; 85730; 86850; 86900; 86901; 96374; 99285

== ENCOUNTER → 2018-05-14 | Outpatient (CLI) | payer MEDICARE ==
--- NOTE | 2018-05-14 13:06 | CT ---
EXAMINATION TYPE: CT chest wo con DATE OF EXAM: 05/14/2018 COMPARISON: 04/13/2017 and 04/11/2016 HISTORY: SPN CT DLP: 360.[address] of the chest was performed with lung and mediastinal window settings submitted. The la ck of contrast limits evaluation of the vascular, mediastinal and parenchymal structures including th e upper abdomen. LUNGS: The lungs are clear and free of infiltrate. No atelectasis. Scattered pulmonary nodules are st able. No pleural effusion. No CT evidence of interstitial lung disease. MEDIASTINUM/ESTHER: Thoracic aorta is of normal caliber with limited evaluation given lack of contrast . The heart is mildly enlarged. No evidence for mediastinal mass. No lymph nodes greater than 1cm . UPPER ABDOMEN: No significant abnormality is seen. OTHER: No significant other abnormality. IMPRESSION: 1. Stable nonspecific scattered pulmonary nodules. Nodules are stable since 04/11/2016 and can be ass umed to be benign.
== END | disposition home or self-care (01) ==
LOC: RADCTMAIN 11:49
PROVIDERS: ATTEND Internal Medicine
DX: R91.8 Other nonspecific abnormal finding of lung field (principal); I71.2 Thoracic aortic aneurysm, without rupture
CPT/HCPCS: 71250

== ENCOUNTER → 2019-04-22 | Outpatient (CLI) | payer MEDICARE ==
--- NOTE | 2019-04-22 15:36 | CT ---
EXAMINATION TYPE: CT chest wo con DATE OF EXAM: 04/22/2019 COMPARISON: 05/14/2018 and 04/11/2016 HISTORY: 83-year-old male with thoracic aortic aneurysm without rupture, follow-up exam TECHNIQUE: Contiguous axial scanning of the chest without IV contrast. Coronal and sagittal reconstru ctions performed. CT DLP: 499 mGycm Automated exposure control for dose reduction was used. FINDINGS: Heart normal size without pericardial effusion. Coronary vessel calcifications are present. Aortic root borderline ectatic at 3.5 cm, stable. Ascending aorta aneurysmal at 4.5 cm, stable. Moderate atherosclerotic arch calcifications with conventional vessel branching anatomy. Aneurysmal upper descending thoracic aorta at 3.9 cm, unchanged. Aneurysmal mid descending thoracic aorta at 3.4 cm, unchanged. Aneurysmal lower descending thoracic aorta at 3.2 cm, unchanged. Large caliber to the main right and left pulmonary arteries at 2.7 and 3.0 cm, respectively. Prominent but nonenlarged mediastinal lymph nodes unchanged. 5 mm right lower lobe pulmonary nodule axial image 32 is less defined from last year suggesting a edgar ign etiology. 8 mm fissural pulmonary nodule right mid lung, and axial image 35 unchanged from 2016, benign. 3 mm peripheral left lower lobe pulmonary nodule axial image 40, unchanged. 5 mm posterior left basilar pulmonary nodule axial image 46, unchanged. No consolidation or pleural effusion. Visualized upper abdomen shows a couple dependent gallstones measuring up to 7 mm. Mild stool burden and scattered colonic diverticulosis. 1.2 cm left renal cyst. Ectatic upper abdominal aorta at 2.7 cm . Bones: Moderate degenerative disc disease mid to lower thoracic spine. IMPRESSION: 1. CAD AND PULMONARY ARTERIAL HYPERTENSION. 2. STABLE ANEURYSMAL THORACIC AORTA (ASCENDING 4.5 CM AND DESCENDING 3.9 CM). 3. MULTIPLE BILATERAL PULMONARY NODULES MEASURING UP TO 8 MM ARE UNCHANGED BACK TO 2018. THE LARGER N ODULES ARE STABLE BACK TO 2016. IF THE PATIENT HAS AN INCREASED RISK FOR DEVELOPMENT OF LUNG CANCER, CONSIDER CONTINUED ANNUAL FOLLOW-UP.
== END | disposition home or self-care (01) ==
LOC: RADCTMAIN 12:43
PROVIDERS: ATTEND Internal Medicine
DX: I25.10 Atherosclerotic heart disease of native coronary artery without angina pectoris (principal); I27.21 Secondary pulmonary arterial hypertension; I71.2 Thoracic aortic aneurysm, without rupture; R91.8 Other nonspecific abnormal finding of lung field; I48.0 Paroxysmal atrial fibrillation
CPT/HCPCS: 71250

== ENCOUNTER 2020-04-20 09:50 | Day surgery (SDC) | payer MEDICARE ==
[2020-04-19 14:01] VITALS: BMI 27.8
[~2020-04-20 09:50] MED LIST: LACTATED RINGERS 1,000 ML IV SCH; SODIUM CHLORIDE 0.9% 1,000 ML IV SCH
[2020-04-20] MEDS ORDERED: SODIUM CHLORIDE 0.9% 1,000 ML IV ONE (10:22)
[2020-04-20 10:33] VITALS: BP 151/100; RESP 16; TEMP 97.6
[2020-04-20 11:09] LABS: INR 1.3 (<1.2); Prothrombin Time 13.2 sec (9.0-12.0)
--- NOTE | 2020-04-20 12:33 | P.PCN ---
Preoperative Diagnosis: Patient was admitted for evaluation and management of atrial fibrillation His INR was subtherapeutic Electrical cardioversion was canceled He will undergo weekly Coumadin level checks before his proposed cardioversion
[2020-04-20 17:52] VITALS: PULSE 118
== END 2020-04-20 12:35 | disposition home or self-care (01) ==
LOC: CATHEP 09:50
PROVIDERS: ATTEND Internal Medicine Clinical Cardiac Electrophysiology
DX: I48.19 Other persistent atrial fibrillation (principal); R79.1 Abnormal coagulation profile; I49.5 Sick sinus syndrome; I42.8 Other cardiomyopathies; I35.0 Nonrheumatic aortic (valve) stenosis; Z79.899 Other long term (current) drug therapy; M19.90 Unspecified osteoarthritis, unspecified site; Z79.01 Long term (current) use of anticoagulants; Z53.8 Procedure and treatment not carried out for other reasons
CPT/HCPCS: 85610

== ENCOUNTER 2020-05-17 10:51 | Day surgery (SDC) | payer MEDICARE ==
[2020-05-13 14:51] VITALS: BMI 27.8
[~2020-05-17 10:51] MED LIST changes: +LIDOCAINE 1% (10MG/ML) FOR IV START INTRADERMA PRN
[2020-05-17] MEDS ORDERED: SODIUM CHLORIDE 0.9% 1,000 ML IV ONE (11:26)
[2020-05-17 11:34] VITALS: RESP 16
[2020-05-17 11:46] LABS: INR 4.2 (<1.2); Prothrombin Time 41.6 sec (9.0-12.0)
[2020-05-17 11:49] LABS: Calcium 9.5 mg/dL (8.4-10.2); Potassium 4.5 mmol/L (3.5-5.1)
[2020-05-17] MEDS ORDERED: PROPOFOL 10 MG/ML 20 ML VIAL IV ONE (15:28)
[2020-05-17] MEDS ORDERED: LIDOCAINE 1% INJ 10MG/ML (20 ML MDV) ONE (15:28)
--- NOTE | 2020-05-17 16:25 | P.PCN ---
Preoperative Diagnosis: Diagnosis Symptomatic persistent atrial fibrillation Cardio myopathy Tiredness and fatigue lack of energy and poor quality of life Obstructive sleep apnea, not using the CPAP mask INR 4.2 today Sodium 138 potassium 4.5 BUN 19 creatinine 1.0 Procedure 360 J biphasic shock used to cardiovert the patient successfully Immediate recurrence of atrial fibrillation Repeat cardioversion at 250 J Patient maintains sinus rhythm for at least 10 minutes Frequent PACs Under anesthesia it was observed that his mandible would retract backwards, posteriorly by at least 1-2 cm resulting in obstruction and he required a jaw left throughout the procedure Result Successful electrical cardioversion for atrial fibrillation. At the first attempt there was immediate recurrence No immediate recurrence the second attempt Mandibular retraction while sleeping resulting in obstruction Suggest Increase of recurrence I would suggest in A. fib ablation. This is an 84-year-old gentleman who is at Sick Sinus Syndrome in the past However despite significant bradycardia he was never symptomatic from this and therefore always refused a pacemaker However with rate controlled atrial fibrillation he is extremely tired and fatigued His left ventricular ejection fraction is reduced to around 35% His options include A. fib ablation versus drug therapy with permanent pacemaker implantation His choice is for drug therapy include amiodarone sotalol or dofetilide I would recommend pulmonary vein isolation and linear ablation the left atrium There is a 1% risk of cardiac puncture with either procedure I would recommend an A. fib ablation Discussed with the patient and his I will readjust the dose of Coumadin Coumadin 5 mg by mouth daily for 4 days of the week Coumadin 2.5 mg on Wednesdays and Fridays Reduce the dose of metoprolol to 12.5 mg twice daily
[2020-05-17 17:23] VITALS: BP 110/72; PULSE 55
== END 2020-05-17 17:23 | disposition home or self-care (01) ==
LOC: CATHCVL 10:51
PROVIDERS: ATTEND Internal Medicine Clinical Cardiac Electrophysiology
DX: I48.19 Other persistent atrial fibrillation (principal); I42.9 Cardiomyopathy, unspecified; I49.5 Sick sinus syndrome; I35.0 Nonrheumatic aortic (valve) stenosis; E78.5 Hyperlipidemia, unspecified; I11.0 Hypertensive heart disease with heart failure; I50.9 Heart failure, unspecified; Z79.899 Other long term (current) drug therapy; Z79.01 Long term (current) use of anticoagulants
CPT/HCPCS: 92960; 80048; 85610; J2001; J2704

== ENCOUNTER → 2020-06-15 | Outpatient (CLI) | payer MEDICARE | END | disposition home or self-care (01) | LOC: LABWHC1 15:57 | PROVIDERS: ATTEND Internal Medicine | DX: Z03.818 Encounter for observation for suspected exposure to other biological agents ruled out (principal); Z13.9 Encounter for screening, unspecified | CPT/HCPCS: U0003; C9803 ==

== ENCOUNTER → 2020-07-12 | Outpatient (CLI) | payer MEDICARE ==
[2020-07-12 19:59] LABS: African American GFR (CKD) 56.9 (60.0-200.0); BUN/Creat Ratio 24.62 Ratio (12.00-20.00); Non-African American GFR(CKD) 49.1 (60.0-200.0); Potassium 4.4 mmol/L (3.5-5.5)
== END | disposition home or self-care (01) ==
LOC: LABWHC1 13:29
PROVIDERS: ATTEND Internal Medicine
DX: I35.0 Nonrheumatic aortic (valve) stenosis (principal); Z20.828 Contact with and (suspected) exposure to other viral communicable diseases
CPT/HCPCS: 83880; 80048; 36415; U0003

== ENCOUNTER → 2020-07-20 | Outpatient (CLI) | payer MEDICARE | END | disposition home or self-care (01) | LOC: LABWHC1 13:43 | PROVIDERS: ATTEND Internal Medicine | DX: Z20.828 Contact with and (suspected) exposure to other viral communicable diseases (principal); Z11.59 Encounter for screening for other viral diseases | CPT/HCPCS: U0003; C9803 ==

== ENCOUNTER → 2021-07-25 | Outpatient (CLI) | payer MEDICARE ==
--- NOTE | 2021-07-26 09:16 | CT ---
EXAMINATION TYPE: CT chest wo con DATE OF EXAM: 07/25/2021 COMPARISON: CT chest 04/22/2019 HISTORY: h/o pulmonary nodule, f/u, thoracic aortic aneurysm CT DLP: 473.9 mGycm. Automated Exposure Control for Dose Reduction was Utilized. TECHNIQUE: CT scan of the thorax is performed without IV contrast. FINDINGS: Lack of intravenous contrast could compromise the sensitivity of the exam. LUNGS: The lungs are grossly clear, there is no concerning parenchymal mass or nodule identified. Pr eviously measured areas show no interval change. Interstitial changes are present within the lungs si milar to prior. There is no pleural effusion or pneumothorax seen. The tracheobronchial tree is wallace nt. MEDIASTINUM: Lack of IV contrast is noted to limit evaluation for mediastinal and especially hilar ad enopathy. There are no definitive greater than 1 cm hilar or mediastinal lymph nodes. No cardiomega ly or pericardial effusion is seen. Again prominence of the pulmonary arteries noted, correlate for p ossible pulmonary artery hypertension. OTHER: Proximal descending aorta measures approximately 4.2 cm, essentially stable accounting for dif ferences in measurement. Ascending aorta shows a measurement of approximately 4.8 cm similar to prior , root of the aorta is post TAVR procedure, performed in the interval. There are coronary artery calc ifications, intracardiac leads are present which have been placed in the interval within the coronary sinus, right and left atrium. Generators present in the left pectoral region. Diverticular changes a re associated with the colon. There are gallstones within the gallbladder. Cortical cyst is associate d with the left kidney. Superior endplate compression deformity which is developed in the interval at T12, no significant bony retropulsion is identified, loss of height is approximately 25% centrally. Postop changes are noted to the lumbar spine IMPRESSION: Postprocedural changes, aortic aneurysm appears essentially stable. Interstitial lung dis ease. Interval compression fracture T12. Cholelithiasis and diverticulosis. No suspicious pulmonary n odule evident.
== END | disposition home or self-care (01) ==
LOC: RADCTMAIN 18:13
PROVIDERS: ATTEND Internal Medicine
DX: J98.4 Other disorders of lung (principal); I71.2 Thoracic aortic aneurysm, without rupture; K80.20 Calculus of gallbladder without cholecystitis without obstruction
CPT/HCPCS: 71250

== ENCOUNTER → 2023-04-25 | Outpatient (CLI) | payer MEDICARE ==
--- NOTE | 2023-04-25 13:38 | XR ---
EXAMINATION TYPE: XR chest 2V DATE OF EXAM: 04/25/2023 1:25 PM COMPARISON: Chest radiographs from 06/18/2016, CT chest 07/25/2021 TECHNIQUE: XR chest 2V Frontal and l ateral views of the chest. CLINICAL INDICATION:Male, 87 years old with history of R10.812 ABD PAIN LUQ; FINDINGS: Lungs/Pleura: There is no evidence of pleural effusion, focal consolidation, or pneumothorax. Pulmonary vascularity: Unremarkable. Heart/mediastinum: Cardiomediastinal silhouette is unremarkable. Atherosclerotic calcifications are seen in the aorta. Three lead cardiac conduction device overlying the left hemithorax with lead tips projecting over the right ventricle, right atrium and coronary sinus. Aortic valvular repair changes. Musculoskeletal: No acute osseous pathology. Mild multilevel degenerative changes of the thoracic spi ne. Redemonstration of anterior wedge compression deformity of the T12 vertebral body. IMPRESSION: Chronic changes without evidence for acute process.
--- NOTE | 2023-04-25 13:41 | XR ---
EXAMINATION TYPE: XR abdomen 2V DATE OF EXAM: 04/25/2023 COMPARISON: Chest radiograph the same date. HISTORY: Left upper quadrant abdominal pain TECHNIQUE: Supine and upright views of the abdomen are obtained. FINDINGS: Small bowel demonstrates no evidence for dilatation or air fluid levels. Gas and fecal material is seen in non-distended colon. No convincing evidence for pneumoperitoneum. Multiple pelvic phleboliths with a 2.8 cm spiculated stone within the left aspect of the urinary blad elena. The lung bases are clear. The osseous structures are intact. Multilevel degenerative changes of the visualized spine. Levoconve x curvature of the lumbar spine. Partial visualization of cardiac pacemaking leads. IMPRESSION: 1. Overall nonobstructive bowel gas pattern. 2. [place] identified within the left aspect of the urinary bladder measuring up to 2.8 cm.
== END | disposition home or self-care (01) ==
LOC: RADXRMAIN 12:48
PROVIDERS: ATTEND Nurse Practitioner Family
DX: I70.0 Atherosclerosis of aorta (principal); M47.814 Spondylosis without myelopathy or radiculopathy, thoracic region; R10.812 Left upper quadrant abdominal tenderness; R06.02 Shortness of breath
CPT/HCPCS: 71046; 74019